=== PATIENT | female | born 1955 | race Two or more races ===

== ENCOUNTER 2023-03-13 07:20 | Day surgery (SDC) | payer OTHER ==
[~2023-03-13] VITALS: Ht 158.8 cm; Wt 66.2 kg
[2023-03-13] MEDS ORDERED: LIDOCAINE 2%HCL (LOCAL ANESTH.) INJ 20ML MDV ONE (08:13)
[2023-03-13] MEDS ORDERED: IODIXANOL 320MG/ML 100ML BTL IV ONE ×3 (08:13→09:49)
[2023-03-13] MEDS ORDERED: LISI40TA16 PO (08:26)
[2023-03-13] MEDS ORDERED: ASPI-543 PO (08:26)
[2023-03-13] MEDS ORDERED: PREG100C PO (08:26)
[2023-03-13] MEDS ORDERED: DULA3INJ SC (08:26)
[2023-03-13] MEDS ORDERED: FAMO-12 PO (08:26)
[2023-03-13] MEDS ORDERED: LANS30CA57 PO (08:26)
[2023-03-13] MEDS ORDERED: ATOR20TA PO (08:26)
[2023-03-13] MEDS ORDERED: FURO40TA4 PO (08:26)
[2023-03-13] MEDS ORDERED: CARB25TA77 PO (08:26)
[2023-03-13] MEDS ORDERED: INSU100I64 SC (08:26)
[2023-03-13] MEDS ORDERED: AMLO1TAB22 PO (08:26)
[2023-03-13] MEDS ORDERED: ANGIOMAX 250 MG VIAL IV ONE (08:29)
[2023-03-13] MEDS ORDERED: VERAPAMIL 2.5MG/ML INJ 2ML VIAL IV ONE (08:29)
[2023-03-13] MEDS ORDERED: HEPARIN SODIUM (PORCINE) 5000 UNITS/ML 1ML VIAL ONE (08:29)
[2023-03-13] MEDS ORDERED: fentaNYL CITRATE 100 MCG/2 ML VL ONE (08:30)
[2023-03-13] MEDS ORDERED: MIDAZOLAM HCL 2MG/2ML 2ml VIAL (1mg/ml) ONE (08:30)
[2023-03-13] MEDS ORDERED: SODIUM CHL 0.9% 50 ML ONE (08:30)
[2023-03-13] MEDS ORDERED: POM SC (08:30)
[2023-03-13] MEDS ORDERED: TICAGRELOR 90 MG TAB ONE (09:32)
[2023-03-13] MEDS ORDERED: ASPirin 325 MG TAB ONE (10:00)
[2023-03-13] MEDS ORDERED: TICA90TA PO (11:52)
[2023-03-13] MEDS ORDERED: amLODIPine BESYLATE 5 MG TAB PO ONE (12:00)
== END 2023-03-13 15:24 | disposition home or self-care (01) ==
LOC: CATH 07:20
PROVIDERS: ATTEND Internal Medicine Cardiovascular Disease
DX: R06.02 Shortness of breath (principal); I25.10 Atherosclerotic heart disease of native coronary artery without angina pectoris; I13.10 Hypertensive heart and chronic kidney disease without heart failure, with stage 1 through stage 4 chronic kidney disease, or unspecified chronic kidney disease; N18.9 Chronic kidney disease, unspecified; E11.22 Type 2 diabetes mellitus with diabetic chronic kidney disease; K21.9 Gastro-esophageal reflux disease without esophagitis; Z79.899 Other long term (current) drug therapy; Z79.84 Long term (current) use of oral hypoglycemic drugs; Z79.01 Long term (current) use of anticoagulants; I35.0 Nonrheumatic aortic (valve) stenosis
CPT/HCPCS: 76937; 93460; C1725; C1757; C1769; C1874; C1887; C1894; C9600; J0583; J1644; J2250; J3010; Q9967; 99152; 99153